=== PATIENT | female | born 1935 | race Caucasian/White ===

== ENCOUNTER → 2018-01-02 | Outpatient (CLI) | payer MEDICARE ==
--- NOTE | 2018-01-02 15:35 | CT ---
EXAMINATION TYPE: CT abdomen pelvis w con DATE OF EXAM: 01/02/2018 COMPARISON: None INDICATION: Left hip surgery 2017, pain since. DLP: 907.6 mGycm, Automated exposure control for dose reduction was used. CONTRAST: 100 mL of Isovue 300. Study performed with Oral Contrast TECHNIQUE: Axial images were obtained from above the diaphragm to the pubic rami in the axial plane a t 5 mm thick sections. Reconstructed images are reviewed on the computer in the coronal plane. FINDINGS: Limited CT sections are obtained the lung bases. The lung bases are clear. Some reflux in the dista l esophagus is evident during the exam. CT ABDOMEN:There is a cystlike component posterior to the right lobe liver lateral to the duodenum an d anterior to the kidney measuring approximately 5 cm in diameter measuring 7 Hounsfield units. Liver: Some biliary dilatation is evident. There is an irregular hypodense mass at the inferior anter ior tip of the right lobe liver measuring 4.1 x 5.8 cm in size. A periportal mass measuring 2.1 cm hy poechoic dense could be a necrotic lymph node. Spleen: Normal Pancreas: There is a large hypodense mass at the head of the pancreas measuring 4.8 cm in diameter. T here is marked dilatation of the common bile duct. Pancreatic duct dilatation is not evident. Body an d tail of the pancreas appears atrophic without additional masses. Adrenal glands: The adrenal glands are normal. Gallbladder: Not clearly defined there is a cyst like area near the region of the expected gallbladd er bed fossa. Differential diagnosis could include gallbladder cancer. Kidneys: No masses are evident. No hydronephrosis is present. There is a cyst at the inferior media l pole left kidney measuring 10 Hounsfield units and 4.6 cm in AP dimension. Tiny cortical renal cyst s present at the lateral inferior pole left kidney measuring 0.9 cm. Tiny cortical renal cysts at th e mid posterior lateral left kidney measuring 0.8 cm. There is a cyst at superior pole right kidney m easuring 7 Hounsfield units 4 cm in AP dimension. Couple of tiny cortical renal cysts are likely pres ent on the right kidney midportion. The inferior pole exophytic cyst may be present measuring 1.1 cm. Density cannot be measured and this should be followed. Aorta: Vascular calcification is within the aorta. Inferior vena cava: Normal. CT PELVIS: Loops of bowel within the abdomen and pelvis are normal. There are loops of bowel which are incom pletely distended or lack oral contrast limiting their evaluation. Appendix: Normal as visualized. Urinary bladder: Normal. Genitourinary structures: Uterus and ovaries are not identified. Osseous structures: No suspicious lytic or sclerotic lesions. Left hip prosthesis causes beam hardeni ng artifact. IMPRESSIONS: 1. Complex hypodense masses suspicious for neoplasm. 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 Findings are contributing to common bi le duct dilatation and intrahepatic biliary dilatation. Periportal abnormal adenopathy is likely pres ent. Differential diagnosis could include gallbladder cancer. 2. Multiple renal cysts. A [place] critical message alert has been initiated for Jurgen Pastrana DO via the [employer] [facility] [employer] System on 01/02/2018 3:30 PM. This message alert has been sent to Jurgen Pastrana DO via the preferences provided by the clinician for the receipt of Radiology Critical Findings. Mess age ID [id number].
== END | disposition home or self-care (01) ==
LOC: RADCTMAIN 12:42
PROVIDERS: ATTEND Family Medicine
DX: K83.8 Other specified diseases of biliary tract (principal); N28.1 Cyst of kidney, acquired; I10 Essential (primary) hypertension
CPT/HCPCS: 82565; 84520; 74177; 36415; Q9967